=== PATIENT | male | born 1955 | race Caucasian/White ===

== ENCOUNTER 2016-07-27 08:18 | Emergency (ER) | payer OTHER ==
[~2016-07-27] VITALS: Ht 175.3 cm; Wt 81.8 kg
[2016-07-27 08:23] VITALS: BP 141/87; PULSE 76; RESP 16; O2SAT 97
--- NOTE | 2016-07-27 08:50 | ED.REPORT ---
HPI-Extremity Problem Upper Date of Service July 27, 2016 ED Provider: Mars Erickson DO A 61 year old male with no pertinent medical history presents to the ED due to a laceration. The pt was working on a convection oven this morning when he hit his right forearm against a fan blade. No other trauma is reported. The pt is not up to date on his tetanus vaccination. Nursing Notes Stated Complaint: LACERATION ON RT FOREARM Chief Complaint: Laceration Nursing Notes Reviewed: Yes Allergies: Coded Allergies: No Known Allergies (Unverified , 07/27/16) Scheduled Bupropion ER (Wellbutrin XL) Unknown Strength Tab.er.24h Unknown Dose PO DAILY Multivitamin (Once Daily) 1 Each Tablet 1 EACH PO DAILY General Time Seen by MD: 08:50 Chief Complaint Forearm injury right Hx Obtained From: Patient Arrived By: Walk-in Onset Occurred: 1 - 4 hours ago Symptom Duration: Since onset Recent Healthcare: No recent doctor visit, No recent hospitalization Similar Sx Previous: No Past Medical History Past Medical History none reported Past Surgical History hernia Smoking History Unknown if Ever Smoker Social History Alcohol Use: "Social" Other Social History: Ambulatory Status Independent Review of Systems Review of Systems Note: laceration of right forearm Musculoskeletal: Denies: Neck pain Skin: Denies Rash Complete sys rev & neg: except as marked. Respiratory: Denies: Non-productive cough, Shortness of breath Cardiovascular: Denies: Chest pain GI: Denies: Abdominal pain Physical Exam Initial Vital Signs Vital Signs (First) Date Time Temp Pulse Resp B/P Pulse Ox O2 Delivery O2 Flow Rate FiO2 07/27/16 08:23 36.4 76 16 141/87 97 Room Air Initial VS: Reviewed General/Constitutional: Awake, Alert Neck: Atraumatic, Supple, Full range of motion Respiratory / Chest: Atraumatic, Breath sounds NL, Breath sounds = bilat, No respiratory distress Cardiovascular: Heart rate NL, Regular rhythm, Heart sounds NL Upper Extremity / MS: Full range of motion 2 cm laceration on right forearm Skin: Color NL, No rash, Warm, Dry Neurologic: Oriented X3, Speech NL, No motor deficits, No sensory deficits Head / Eyes: Atraumatic, Normocephalic, PERRL, EOMI ENT: Atraumatic, Airway patent, Mucous membranes moist Abdomen: Atraumatic, Soft, Non-tender Back: Atraumatic, Full range of motion Lower Extremity / Pelvis / MS: Atraumatic, Full range of motion Psychiatric: Affect NL, Mood NL Procedures Laceration Management Time: 09:59 Procedure Performed by: ED physician Consent / Setup / Site Prep: Informed consent provided, Consent from patient , Time-out performed, Hand hygiene observed, Stand sterile technique Location of Wound: right forearm Wound Length: 2 cm Local Anesthesia: Lidocaine w epi 1% (3 mL) Digital Block: No Wound Preparation: Normal saline Debridement: None Irrigation: Copious Foreign Body Explore / Removal: Explored for foreign body Repair Skin: ___ O (4), Nylon # Sutures - Skin: 5 Suture Technique: Simple Post-Procedure / Complications: Antibiotic oint applied, Dressing applied, No complications, Condition improved, Tolerated procedure well, Patient stable Re-Eval/Medical Decision Re-Evaluation/Progress #1: Time of Eval: 09:32 Re-Evaluation/Progress Note: Pt rechecked, who is comfortable. Prepared for laceration managment. Re-Evaluation/Progress #2: Time of Eval: 09:59 Patient Status: Condition improved Re-Evaluation/Progress Note: Pt rechecked, who is comfortable. Laceration management is performed. The diagnosis and plan for discharge are discussed. The pt understands and agrees with the plan. All questions are addressed at this time. Counseled Regarding: Diagnosis, Need for follow-up, When/why to return to ED Discharge & Departure Impression: Primary Impression: Laceration Disposition: Home Discharge Condition All VS Reviewed: Yes Condition: Stable Additional Instructions: Keep area clean and dry. Apply antibiotic ointment daily. Sutures should be removed in 7-10 days. Use Tylenol or ibuprofen for pain. Follow-up with your primary care doctor if you notice signs of infection. Return to the ER as needed. Referrals: Cortez Thompson MD (PCP) Scribe Attestation Portions of this note were transcribed by Kenny Mancilla. I, Dr. Erickson personally performed the history, physical exam and medical decision-making; I reviewed and confirmed the accuracy of the information in the transcribed note. Signed by: Christine Bowie, 07/27/2016 and 1022. copies to: Cortez Thompson MD, Timothy S DO July 27, 2016 08:50 KENNY MANCILLA 9, 2017 09:03
[2016-07-27] MEDS ORDERED: Lidocaine 1%-Epi 1:100,000 20 mL Inj ONE (09:17)
[2016-07-27] MEDS ORDERED: TdaP Vaccine 0.5 mL Inj IM ONE (09:20)
[2016-07-27] MEDS ORDERED: MULT-666 PO (10:06)
[2016-07-27] MEDS ORDERED: BUPR-97 PO (10:06)
== END 2016-07-27 10:30 | disposition home or self-care (01) ==
LOC: SED 08:18
DX: S51.811A Laceration without foreign body of right forearm, initial encounter (principal); W26.8XXA Contact with other sharp object(s), not elsewhere classified, initial encounter; Y93.89 Activity, other specified; Y92.59 Other trade areas as the place of occurrence of the external cause; Y99.0 Civilian activity done for income or pay; Z23 Encounter for immunization

== ENCOUNTER 2016-08-05 08:45 | Emergency (ER) | payer OTHER ==
[~2016-08-05] VITALS: Ht 172.7 cm; Wt 81.8 kg
[~2016-08-05 08:45] MED LIST: BUPR-97 PO; MULT-666 PO
[2016-08-05 08:58] VITALS: BP 125/78; PULSE 73; RESP 10; O2SAT 97
[2016-08-05 09:11] VITALS: BP 125/78; PULSE 73; RESP 10; O2SAT 97
== END 2016-08-05 09:21 | disposition home or self-care (01) ==
LOC: SED 08:45
DX: Z48.02 Encounter for removal of sutures (principal)